=== PATIENT | female | born 1960 | race African-American/Black ===

== ENCOUNTER 2019-08-15 12:11 | Day surgery (SDC) | payer MEDICAID ==
[~2019-08-15] VITALS: Ht 160 cm; Wt 88.6 kg
[~2019-08-15 12:11] MED LIST: ASPI81 PO; METF-960 PO; METO25 PO; SODIUM CHLORIDE 0.9% 1,000 ML IV ONE
[2019-08-15] MEDS ORDERED: PROPOFOL 1% 20 ML VIAL IVP ONE (12:12)
[2019-08-15 13:06] LABS: GLUCOMETER DEV NAME(LOC) SDS.; GLUCOSE,POINT OF CARE 93 MG/DL (70-110)
== END 2019-08-15 15:00 | disposition home or self-care (01) ==
LOC: SURGERY 12:11
PROVIDERS: ATTEND Student in an Organized Health Care Education/Training Program
DX: Z43.1 Encounter for attention to gastrostomy (principal); I10 Essential (primary) hypertension; E11.9 Type 2 diabetes mellitus without complications; I69.351 Hemiplegia and hemiparesis following cerebral infarction affecting right dominant side; Z79.82 Long term (current) use of aspirin; Z79.84 Long term (current) use of oral hypoglycemic drugs; Z79.899 Other long term (current) drug therapy
CPT/HCPCS: 43247; 82962; 93005; C1769; J2704; J7030

== ENCOUNTER 2019-10-17 13:14 | Day surgery (SDC) | payer MEDICAID ==
[~2019-10-17 13:14] MED LIST changes: +SODIUM CHLORIDE 0.9% 1,000 ML ONE
[2019-10-17] MEDS ORDERED: PROPOFOL 1% 20 ML VIAL IVP ONE (13:15)
[2019-10-17] MEDS ORDERED: LIDOCAINE 1% 10 ML VIAL INJ ONE (13:15)
[2019-10-17 14:27] LABS: GLUCOMETER DEV NAME(LOC) SDS.; GLUCOSE,POINT OF CARE 95 MG/DL (70-110)
== END 2019-10-17 16:00 | disposition home or self-care (01) ==
LOC: SURGERY 13:14
PROVIDERS: ATTEND Student in an Organized Health Care Education/Training Program
DX: K94.23 Gastrostomy malfunction (principal); I10 Essential (primary) hypertension; E11.9 Type 2 diabetes mellitus without complications; Z86.73 Personal history of transient ischemic attack (TIA), and cerebral infarction without residual deficits; Z79.899 Other long term (current) drug therapy; Y83.8 Other surgical procedures as the cause of abnormal reaction of the patient, or of later complication, without mention of misadventure at the time of the procedure; Y92.89 Other specified places as the place of occurrence of the external cause
CPT/HCPCS: 43255; 82962; 93005; J2704; J3490; J7030